=== PATIENT | male | born 1960 | race Hispanic/Latino ===

== ENCOUNTER 2018-06-28 13:30 | Outpatient (CLI) | payer BC ==
--- NOTE | 2018-06-28 14:47 | RAD ---
CHEST 2 VIEWS: Date: 06/28/18 HISTORY: Cough for several weeks. FINDINGS: Heart size is normal. The lungs are clear. Mild biapical pleural thickening. IMPRESSION: No acute intrathoracic disease. No evidence for pneumonia. POS: [facility]
== END 2018-06-28 13:31 | disposition home or self-care (01) ==
LOC: BICRAD 13:30
PROVIDERS: ATTEND Family Medicine
DX: R05 Cough (principal)
CPT/HCPCS: 71046

== ENCOUNTER 2018-07-31 12:29 | Outpatient (CLI) | payer BC ==
[~2018-07-31 12:29] MED LIST: Iopamidol 370 76% 100 ML VIAL ONE
[2018-07-31 14:53] LABS: Estimated GFR-MDRD - POC Greater than 90
--- NOTE | 2018-07-31 15:55 | CT ---
CT ABDOMEN AND PELVIS PERFORMED WITH INTRAVENOUS CONTRAST ENHANCEMENT: 07/31/18 HISTORY: Abnormal liver enzymes. Diverticulitis. Dysuria. Patient states about two months ago had severe pain and bloating, diarrhea for two weeks. Two weeks ago patient had colonoscopy and since then has been u rinating with some unknown residue. The lung bases are clear. The liver and spleen show no focal abnormalities and are within normal limits of size. Pancreas regio n is unremarkable. Small focus of increased attenuation within the fundus region of the gallbladder d oes not have the typical appearance of a stone. It could represent a polyp. It measures approximately 7 to 8 mm. Could ne better assessed with ultrasound. The right and left adrenal glands and right and left kidneys are normal in size. No significant peria ortic or mesenteric adenopathy. There is approximately 8 cm segment of the sigmoid colon which shows diffuse bowel wall thickening an d what appears to be diverticular disease. There is findings that are compatible with a fistulous con nection to the bladder. Projecting off the inferior margin of the sigmoid colon, a somewhat lenticula r shaped soft tissue mass impressing on the dome of the bladder. It measures approximately 3.7 cm in size. It appears to be in the region of what was probably a perforated diverticulum and there is some air present within the bladder suggesting that this is a fistulous connection. Most likely related t o diverticular disease. Less likely related to a neoplastic process. There is no significant pelvic l ymphadenopathy. Prostate is mildly prominent. Review of osseous structures do not show any lytic or blastic bony change. IMPRESSION: 1. 8 cm segment of wall thickening in the sigmoid colon. Projecting just inferior to this is a s oft tissue mass which causes a lenticular shaped impression on the dome of the bladder and there is a ir within the bladder. Most likely etiology of this is a fistulous connection related to diverticular disease. 2. Incidental note is made of a 7 mm nodular area in the fundus region of the gallbladder, possi usha a polyp. Ultrasound would be recommended for assessment. 3. Findings were telephoned to Dr. Villalpando's office. POS: [facility]
== END 2018-07-31 12:30 | disposition home or self-care (01) ==
LOC: SCSCT 12:29
PROVIDERS: ATTEND Physician Assistant Medical
DX: K57.92 Diverticulitis of intestine, part unspecified, without perforation or abscess without bleeding (principal); R74.0 Nonspecific elevation of levels of transaminase and lactic acid dehydrogenase [LDH]; R30.0 Dysuria; R10.32 Left lower quadrant pain; K57.90 Diverticulosis of intestine, part unspecified, without perforation or abscess without bleeding
CPT/HCPCS: 74177; 82565; Q9967

== ENCOUNTER 2018-08-10 11:15 | Inpatient (IN) | payer BC ==
[2018-08-10 11:36] VITALS: BMI 25.1
[2018-08-14] MEDS ORDERED: Ketorolac Tromethamine 30 MG/ML VIAL ONE (06:29)
[2018-08-14] MEDS ORDERED: Sodium Chloride 0.9% 100 ML ONE (06:29)
[2018-08-14] MEDS ORDERED: cefOXitin 2 GM VIAL ONE (06:29)
[2018-08-14] MEDS ORDERED: Fentanyl 100 MCG/2 ML VIAL ONE ×2 (06:33→07:02)
[2018-08-14] MEDS ORDERED: Lidocaine 1% w/Epinephrine 1:100K 20 ML VIAL ONE (06:47)
[2018-08-14] MEDS ORDERED: Bupivacaine/Epinephrine 0.25% 30 ML VIAL ONE (06:47)
[2018-08-14] MEDS ORDERED: Midazolam HCl 2 mg/2 ml Vial ONE (07:02)
[2018-08-14] MEDS ORDERED: ceFOXitin 1 GM VIAL ONE (09:52)
[2018-08-14] MEDS ORDERED: Morphine 4 MG/ML VIAL SLOW IVP PRN (11:31)
[2018-08-14] MEDS ORDERED: Morphine 2 MG/ML SYRINGE SLOW IVP PRN (11:31)
[2018-08-14] MEDS ORDERED: Promethazine HCl 25 MG/ML VIAL IM PRN (11:31)
[2018-08-14] MEDS ORDERED: hydrALAZINE 20 MG/ML VIAL SLOW IVP PRN (11:31)
[2018-08-14] MEDS: Ondansetron PF 4 MG/2 ML Vial IVP PRN (13:17)
[2018-08-14] MEDS: Acetaminophen 1,000 MG in Premix Bag 1 BAG IVPB SCH ×3 (13:17→23:44)
[2018-08-14] MEDS: Ketorolac Tromethamine 30 MG/ML VIAL IVP SCH ×3 (13:17→23:44)
[2018-08-14] MEDS ORDERED: Lidocaine 1% PF 5 ML VIAL ONE (15:14)
[2018-08-14] MEDS ORDERED: PHENYLEPHRINE-NS 100 MCG/ML 10 ML SYRINGE ONE (15:14)
[2018-08-14] MEDS ORDERED: Ondansetron PF 4 MG/2 ML Vial ONE (15:14)
[2018-08-14] MEDS ORDERED: Dexamethasone 20 MG/5 ML VIAL ONE (15:14)
[2018-08-14] MEDS ORDERED: ePHEDrine 50 MG/ML VIAL ONE (15:14)
[2018-08-14] MEDS ORDERED: Rocuronium Bromide 10 MG/ML (10ML VIAL) ONE (15:14)
[2018-08-14] MEDS ORDERED: Succinylcholine Chloride 20 MG/ML 10 ml SYRINGE FS ONE (15:14)
[2018-08-14] MEDS ORDERED: Glycopyrrolate 0.2 MG/ML 5 ML SYRINGE ONE (15:14)
[2018-08-14] MEDS ORDERED: Esmolol 100 MG/10 ML VIAL ONE (15:14)
[2018-08-14] MEDS ORDERED: PROPOFOL 200 MG/20 ML VIAL ONE (15:14)
[2018-08-14] MEDS ORDERED: Bupivacaine HCl 0.5%/Epinephrine 1:200,000/PF 30 ml Vial ONE (16:01)
[2018-08-14] MEDS: D5 1/2 NS w/20 mEq KCL 1,000 ML IV SCH ×2 (18:15→18:17)
[2018-08-14] MEDS: Amlodipine 5 MG TAB PO SCH (18:15)
[2018-08-14] MEDS: Enoxaparin Sodium 40 MG/0.4 ML SYRINGE SC SCH (21:02)
[2018-08-14] MEDS: Famotidine/PF 20 mg/2ml Vial SLOW IVP SCH (21:02)
[2018-08-14] MEDS: Alfuzosin 10 MG TABDR...ER PO SCH (21:02)
[2018-08-14] MEDS: Famotidine 20 MG TAB PO SCH (21:02)
[2018-08-14] MEDS: Atorvastatin Calcium 20 MG TAB PO SCH (21:02)
--- NOTE | 2018-08-14 22:54 | OP ---
DATE OF PROCEDURE: 08/14/2018 PREOPERATIVE DIAGNOSIS: Colovesical fistula. POSTOPERATIVE DIAGNOSIS: Colovesical fistula. OPERATION PERFORMED: Laparoscopic sigmoid colectomy. ANESTHESIA: General endotracheal. INDICATIONS: The patient is a 58-year-old male. He had a colonoscopy performed recently, which showed active diverticulitis. He subsequently developed symptoms of a colovesical fistula with pneumaturia and fecal matter within his urine. Laparoscopic sigmoid colectomy was recommended. He has been maintained on antibiotics in the interim. He has undergone outpatient mechanical and antibiotic bowel prep. DESCRIPTION OF OPERATION: Informed consent was obtained. The patient was taken to the operating room, where general endotracheal anesthesia was obtained with the patient in supine position. Before coming to the operating room, he had a tap block placed by Anesthesia. A Ibrahim catheter was placed and his abdomen was prepped with ChloraPrep and draped in sterile fashion. Local anesthetic was infiltrated using 0.25% Marcaine with epinephrine. A 5 mm supraumbilical incision was created through which a Veress needle was passed into the peritoneal cavity. Pneumoperitoneum was established using carbon dioxide to pressure of 15 mmHg. A 5 mm trocar port site was passed through the same incision. Laparoscopic camera was passed through this port. Under direct vision, a 12 mm right lower quadrant port was placed. The area of inflammation was easily visualized in the left lower quadrant. There was omentum adherent to inflamed colon, which was adherent to the anterior abdominal wall and the pelvis. There was noted that the colon distal to this was soft and pliable and entirely normal as was the colon proximal to this segment. I took down some of the adhesions between the omentum and the anterior abdominal wall to allow room for placement of the extraction port. An 8 cm oblique left lower quadrant incision was created and dissection was carried through skin and subcutaneous tissue. Muscle splitting was used to gain access into the abdominal cavity. The James wound retractor was placed through this incision and the GelPort was affixed to the wound retractor. The omentum was dissected away from the inflammatory process and retracted superiorly. The patient was placed into a fairly steep Trendelenburg position. Attention was turned to the inflamed mass. This extended over the course of about 8 to 9 cm. There was no segment of this that I could digitally mobilized away from the abdominal wall. I first turned my attention to the left colon. The left colon was mobilized along the white line of Toldt using the LigaSure device. The mobilization was carried up and beyond the splenic flexure to gain full splenic flexure mobilization. The omentum was taken off the distal transverse colon as well. I then attempted to dissect inferiorly along the same plane, but immediately met with extreme inflammatory resistance. There was no area that could be dissected bluntly or sharply on the proximal or distal aspect of this. I therefore used electrocautery to begin to mobilize the inflamed and thickened tissue, attempting to maintain some plane between the colon and the abdominal wall. Fortunately, this process was relatively anterior and therefore well away from the ureter. With persistence and continued electrocautery, I was able to fully mobilize the colon away from the abdominal wall. The portion of the abdominal wall that was involved was of course the bladder and there was severe inflammatory tissue noted at this area. I, at this point, instilled 300 mL of saline with methylene blue dye. With the bladder relatively tensely filled, I could visualize no leak through this area. The tissue was indurated, inflamed, and I opted against placing any sutures in the bladder at this time. I mobilized the left colon down into the pelvis by incising the peritoneum. This was carried superiorly to gain full appropriate mobilization. The ureter was identified at this juncture. I dissected the mesentery of the rectosigmoid junction, creating a mesenteric window. The colon was divided at this level with a single fire of the blue load of the [place] stapler. The mesentery was dissected proximally. I then identified a segment of the descending colon that would reach down into the pelvis. This was marked and the colon was externalized through the wound retractor. The remainder of the mesentery was taken down using the LigaSure device and the colon was cleared at the point of planned proximal division. Sterile towels were placed around the wound retractor and segregated instruments were utilized. The colon was incised and the colon diameter was discerned using EEA sizers. I selected the 31 mm EEA stapler and the anvil of this was brought into the field and passed through the enterotomy and out the antimesenteric wall several centimeters proximally. The enterotomy was then resected in continuity with the distal segment of the colon with a final fire of the [place] stapler. The stapler as well as the towels in all potentially contaminated instruments were passed off the field. Gloves were changed. Post of the anvil was cleansed with Betadine and 2-0 Prolene, pursestring suture was placed around the base of the anvil. Laparoscopy was re-initiated. From below, the EEA sizers were gently passed up to the staple line uneventfully and the 31 mm stapler was passed up to the staple line. The spike was advanced anterior to the staple line. This was mated to the anvil. The two segments were approximated and the anastomosis was completed by firing the stapler. The stapler was removed and the donuts were inspected and found to be of excellent quality and intact. The anastomosis was checked for airtight integrity by insufflating the rigid proctoscope. There was no evidence of air leak. The operative site internally was inspected one final time. There was no evidence of any blood loss from any location. It was irrigated and all irrigant was aspirated. The fascial defect at the 12 mm port site was closed with 0 Vicryl suture using a GraNee needle. All ports and instruments were removed under direct vision and pneumoperitoneum was carefully evacuated. The wound retractor was removed as well. The abdominal wall was cleansed with saline and the laparoscopic instrumentation was passed off the field. Gowns and gloves were changed. The closing tray was utilized. The fascia was closed in 2 layers using running suture of #1 PDS. Additional local anesthetic was infiltrated between the two fascial layers using 1% lidocaine with epinephrine. The wound was irrigated with 2 L of saline and all irrigant was aspirated. The remainder of the wound was closed in layers with 3-0 and 4-0 Monocryl and the other laparoscopic sites were closed with 4-0 Monocryl. Dermabond was placed externally. There were no complications. The patient tolerated the procedure well and was taken to recovery room in stable condition. Job ID: [id number]
[2018-08-15] MEDS: Ketorolac Tromethamine 30 MG/ML VIAL IVP SCH ×4 (05:21→23:33)
[2018-08-15] MEDS: Acetaminophen 1,000 MG in Premix Bag 1 BAG IVPB SCH (05:22)
[2018-08-15] MEDS: D5 1/2 NS w/20 mEq KCL 1,000 ML IV SCH ×3 (05:22→18:30)
[2018-08-15 07:15] LABS: #Lymphocytes 1.2 thou/uL (1.20-3.40); #Monocytes 1.1 thou/uL (0.11-0.59); #Neutrophils 7.9 thou/uL (1.40-6.50); %Basophils 0.2 % (0.0-1.0); %Eosinophils 0.3 % (0.0-10.0); %Monocytes 10.8 % (0.0-10.0); %Neutrophils 76.7 % (42.0-75.0); Mean Corpuscular HGB CONC 32.1 g/dL (32.0-36.0); Mean Corpuscular Hemoglobin 29.3 pg (27.0-31.0); Mean Corpuscular Volume 91.3 fL (78.0-98.0); Mean Platelet Volume 6.8 fL (7.4-10.4); Platelet Count 292 thou/uL (130-400); RBC Distribution Width 12.7 % (11.5-14.5); Red Blood Cell (RBC) Count 4.09 mill/uL (4.70-6.10); White Blood Cell (WBC) Count 10.3 thou/uL (4.8-10.8)
[2018-08-15 07:34] LABS: Anion Gap 10 mmol/L (10-20); BUN (Urea Nitrogen) 9 mg/dL (8.4-25.7); Calc. Creatinine Clearance 115 mL/min (70-130); Calcium 8.8 mg/dL (7.8-10.44); Carbon Dioxide 26 mmol/L (22-29); Chloride 105 mmol/L (98-107); Estimated GFR-MDRD Greater than 90; Glucose 120 mg/dL (70-105); Sodium 137 mmol/L (136-145)
[2018-08-15] MEDS ORDERED: HYDROcodone/Acetaminophen 7.5/325 mg Tablet PO PRN (08:04)
--- NOTE | 2018-08-15 08:21 | PRG ---
DATE OF SERVICE: 08/15/2018 SUBJECTIVE: Mr. Ta is postoperative day #1 from laparoscopic sigmoid colectomy and repair of colovesical fistula. He is resting in bed comfortably. He complains of "gas pains." He has not vomited. His Ibrahim catheter is still in place. He is ambulated several times. OBJECTIVE: VITAL SIGNS: He is afebrile. Pulse is 90 and blood pressure 114/63. LUNGS: Clear to auscultation. ABDOMEN: Soft. Incisions are healing nicely. Bowel sounds are present and normoactive. LABORATORY DATA: Chemistry panel reveals normal electrolytes. Glucose is 120. His CBC shows a hemoglobin of 12 with a white blood cell count of 10. ASSESSMENT: The patient is doing very well postoperative day #1 from laparoscopic sigmoid colectomy. He is on his clear liquid diet today and he is instructed to take clears as tolerated. I will advance him to full liquids later this evening. He is also instructed to ambulate several times. Assuming he continues current progress, I would anticipate discharge tomorrow. PLAN: I will plan to discharge him home with Ibrahim catheter in place and I will remove that in my office after one week. This is to allow completion of healing of the bladder fistula. Finally, it is noted that he is on metformin, but his hemoglobin A1c preoperatively was normal and his glucose levels have never been significantly elevated since his surgery. At some point in the past in September of 2016, he had an A1c of 11.1, but it was 5.4 in preparation for the surgery. Perhaps it would be time to wean his metformin. Job ID: [id number]
[2018-08-15] MEDS: Amlodipine 5 MG TAB PO SCH (09:41)
[2018-08-15] MEDS: Famotidine 20 MG TAB PO SCH ×2 (09:44→21:17)
[2018-08-15] MEDS: metFORMIN 500 MG TAB PO SCH ×2 (09:45→21:17)
[2018-08-15] MEDS: Famotidine/PF 20 mg/2ml Vial SLOW IVP SCH ×2 (09:45→21:18)
[2018-08-15] MEDS: Ondansetron PF 4 MG/2 ML Vial IVP PRN (16:14)
[2018-08-15] MEDS: Acetaminophen 325 MG TAB PO PRN ×2 (18:15→22:22)
[2018-08-15] MEDS: Alfuzosin 10 MG TABDR...ER PO SCH (21:17)
[2018-08-15] MEDS: Enoxaparin Sodium 40 MG/0.4 ML SYRINGE SC SCH (21:18)
[2018-08-15] MEDS: Atorvastatin Calcium 20 MG TAB PO SCH (21:18)
[2018-08-16] MEDS: D5 1/2 NS w/20 mEq KCL 1,000 ML IV SCH ×2 (03:40→11:42)
[2018-08-16] MEDS: Acetaminophen 325 MG TAB PO PRN (03:40)
[2018-08-16] MEDS: Ketorolac Tromethamine 30 MG/ML VIAL IVP SCH ×4 (05:36→23:50)
[2018-08-16] MEDS: Amlodipine 5 MG TAB PO SCH (08:55)
[2018-08-16] MEDS: Ondansetron PF 4 MG/2 ML Vial IVP PRN (08:56)
[2018-08-16] MEDS: Famotidine/PF 20 mg/2ml Vial SLOW IVP SCH ×2 (08:56→19:43)
[2018-08-16] MEDS: Famotidine 20 MG TAB PO SCH ×2 (08:56→19:43)
[2018-08-16] MEDS: metFORMIN 500 MG TAB PO SCH ×2 (08:56→19:44)
--- NOTE | 2018-08-16 12:56 | RAD ---
KUB: 08/16/2018 COMPARISON: None HISTORY: Status post colectomy. FINDINGS: There is diffuse gaseous distention of large and small bowel throughout the abdomen/pelvis. Supine imaging is provided, limiting assessment for free intraperitoneal air. IMPRESSION: Prominent diffuse gaseous distention of the large and small bowel, most consistent with i leus. Developing bowel obstruction cannot be excluded. Follow-up imaging following treatment advised to document resolution.
--- NOTE | 2018-08-16 16:34 | PRG ---
DATE OF SERVICE: 08/16/2018 SUBJECTIVE: Mr. Ta is postoperative day #2 from laparoscopic sigmoid colectomy and repair of colovesical fistula. This morning, upon arrival, he told me he felt much better today than he did yesterday. He told me that he has had flatus and had a bowel movement yesterday, and he tolerated his diet without any vomiting, and he currently had no nausea, although he did have some yesterday. At that time, I felt that he was stable for discharge as it appeared that his ileus had appropriately resolved and he was ready for discharge. Discharge orders were written. Unfortunately, as the morning progressed, he again felt bloated as he had yesterday and was given some nausea medication. Through the course of the day, he was observed and he really did not have much further flatus. He again felt bloated and an abdominal x-ray was ordered. This revealed diffusely distended gas-filled loops of small bowel and colon. For this reason, I decided that he would likely have problems if he was discharged home and I elected to watch him for another day and switched him to a clear liquid diet. OBJECTIVE: VITAL SIGNS: On examination, he remains afebrile. His pulse which was in the 90s yesterday is in the low 100s today, but still regular. Blood pressure is 150/100. LUNGS: Clear to auscultation. CARDIAC: Regular rate and rhythm. ABDOMEN: Soft and nontender. Bowel sounds were present and appeared to be normoactive this morning. Incisions are healing nicely. LABORATORY DATA: None. ASSESSMENT: The patient is stable postoperative day #2 from his laparoscopic sigmoid colectomy. I do not believe he is ready for discharge at this point. I will keep him on a clear liquid diet and resume his IV fluids and watch him overnight. I will recheck labs tomorrow. I anticipate he will be ready for discharge in the near future. Job ID: [id number]
[2018-08-16] MEDS: Lactated Ringer's 1,000 ML IV SCH (17:34)
[2018-08-16] MEDS: Enoxaparin Sodium 40 MG/0.4 ML SYRINGE SC SCH (19:42)
[2018-08-16] MEDS: Atorvastatin Calcium 20 MG TAB PO SCH (19:43)
[2018-08-16] MEDS: Alfuzosin 10 MG TABDR...ER PO SCH (19:43)
[2018-08-17] MEDS: Ketorolac Tromethamine 30 MG/ML VIAL IVP SCH ×2 (05:01→11:41)
[2018-08-17] MEDS: Lactated Ringer's 1,000 ML IV SCH ×3 (05:02→22:55)
[2018-08-17 05:48] LABS: #Eosinphils 0.1 thou/uL (0.0-0.7); #Monocytes 1.1 thou/uL (0.11-0.59); #Neutrophils 8.7 thou/uL (1.40-6.50); %Basophils 0.4 % (0.0-1.0); %Eosinophils 1.2 % (0.0-10.0); %Lymphocytes 9.2 % (21.0-51.0); %Monocytes 9.7 % (0.0-10.0); %Neutrophils 79.5 % (42.0-75.0); Hemoglobin 12.6 g/dL (14.0-18.0); Mean Corpuscular HGB CONC 33.6 g/dL (32.0-36.0); Mean Corpuscular Volume 89.2 fL (78.0-98.0); Platelet Count 296 thou/uL (130-400); RBC Distribution Width 12.4 % (11.5-14.5); Red Blood Cell (RBC) Count 4.21 mill/uL (4.70-6.10)
[2018-08-17 06:29] LABS: Anion Gap 11 mmol/L (10-20); BUN (Urea Nitrogen) 13 mg/dL (8.4-25.7); Calc. Creatinine Clearance 141 mL/min (70-130); Calcium 9.3 mg/dL (7.8-10.44); Carbon Dioxide 25 mmol/L (22-29); Chloride 103 mmol/L (98-107); Estimated GFR-MDRD Greater than 90; Glucose 106 mg/dL (70-105); Sodium 135 mmol/L (136-145)
[2018-08-17] MEDS: metFORMIN 500 MG TAB PO SCH ×2 (09:03→21:52)
[2018-08-17] MEDS: Famotidine/PF 20 mg/2ml Vial SLOW IVP SCH ×2 (09:04→21:52)
[2018-08-17] MEDS: Famotidine 20 MG TAB PO SCH ×2 (09:04→21:35)
[2018-08-17] MEDS: Amlodipine 5 MG TAB PO SCH (09:04)
[2018-08-17] MEDS ORDERED: Fleet Enema 133 ML BOT FS SCH (10:15)
--- NOTE | 2018-08-17 17:23 | CT ---
Contrast-enhanced images abdomen pelvis. HISTORY: Status post sigmoid colectomy. Contrast-enhanced images of the abdomen and pelvis obtained. The lung bases are unremarkable. Extensive gas seen in the subcutaneous fat compatible with patient's recent surgery. Small amount of intraperitoneal air seen which likely is postsurgical. The liver and spleen is unremarkable. Some hyperintense areas seen in the gallbladder possibly presen ting gallbladder sludge and possible gallbladder polyp.. There is a sliding small hiatal hernia seen. Moderately dilated loops of small bowel seen compatible with postoperative ileus. Radiopaque contrast fills the distal colon. Endorectal enema tip is in place. No evidence of leakage seen outside of the surgical anastomosis in the sigmoid colon. Contrast is seen filling the distal transverse colon as well as the descending colon residual sigmoid colon and rectum. Indwelling Ibrahim catheter is in place. IMPRESSION: Postoperative changes. No evidence of extravasation of contrast seen outside of the dista l colonic lumen to suggest leak.
[2018-08-17] MEDS: Acetaminophen 325 MG TAB PO PRN ×2 (18:23→22:55)
[2018-08-17] MEDS: Enoxaparin Sodium 40 MG/0.4 ML SYRINGE SC SCH (21:34)
[2018-08-17] MEDS: Atorvastatin Calcium 20 MG TAB PO SCH (21:35)
[2018-08-17] MEDS: Alfuzosin 10 MG TABDR...ER PO SCH (21:35)
[2018-08-18 05:21] LABS: #Basophils 0.1 thou/uL (0.0-0.2); #Eosinphils 0.4 thou/uL (0.0-0.7); #Lymphocytes 1.2 thou/uL (1.20-3.40); #Monocytes 0.7 thou/uL (0.11-0.59); #Neutrophils 5.9 thou/uL (1.40-6.50); %Basophils 0.7 % (0.0-1.0); %Eosinophils 4.8 % (0.0-10.0); %Lymphocytes 14.1 % (21.0-51.0); %Monocytes 8.6 % (0.0-10.0); %Neutrophils 71.7 % (42.0-75.0); Hemoglobin 11.5 g/dL (14.0-18.0); Mean Corpuscular Hemoglobin 30.5 pg (27.0-31.0); Mean Corpuscular Volume 89.7 fL (78.0-98.0); Platelet Count 281 thou/uL (130-400); RBC Distribution Width 12.3 % (11.5-14.5); Red Blood Cell (RBC) Count 3.77 mill/uL (4.70-6.10); White Blood Cell (WBC) Count 8.2 thou/uL (4.8-10.8)
[2018-08-18 05:40] LABS: Anion Gap 13 mmol/L (10-20); BUN (Urea Nitrogen) 9 mg/dL (8.4-25.7); Calc. Creatinine Clearance 141 mL/min (70-130); Calcium 8.9 mg/dL (7.8-10.44); Carbon Dioxide 25 mmol/L (22-29); Chloride 103 mmol/L (98-107); Estimated GFR-MDRD Greater than 90; Glucose 80 mg/dL (70-105); Potassium 3.6 mmol/L (3.5-5.1); Sodium 137 mmol/L (136-145)
[2018-08-18] MEDS: HYDROcodone/Acetaminophen 7.5/325 mg Tablet PO PRN ×2 (06:31→16:16)
[2018-08-18] MEDS: Lactated Ringer's 1,000 ML IV SCH (08:06)
[2018-08-18] MEDS: Famotidine/PF 20 mg/2ml Vial SLOW IVP SCH (08:11)
[2018-08-18] MEDS: metFORMIN 500 MG TAB PO SCH (08:12)
[2018-08-18] MEDS: Amlodipine 5 MG TAB PO SCH (08:14)
[2018-08-18] MEDS: Famotidine 20 MG TAB PO SCH (08:14)
--- NOTE | 2018-08-18 16:46 | PDOC.GSPN ---
Surgery Progress Note: Subj - Subjective Narrative: Patient is feeling much better today. He is passing gas and having bowel movements and tolerating his clear liquid diet. His heart rate has come back down into the 90s to 100s which she says is where he usually runs at home. His CT scan yesterday was unremarkable and didn't show any evidence of leak or abscess. Heart rate is in the 90s to 100s. Other vital signs are normal. Abdomen is soft and nondistended with normal bowel sounds and healing laparoscopic incisions. Urine is clear. Assessment/plan: Doing well status post laparoscopic sigmoid colectomy for colovesical fistula. Bowel function appears to be improving and tachycardia is improving as well. Continue Ibrahim catheter to decompress healing bladder. Advance diet to full. If the patient tolerates full liquid diet he may be able to be discharged home later today. Surgery Progress Note: Obj - Vital signs Vital signs: Vital Signs - Most Recent Temp Pulse Resp BP Pulse Ox 97.8 F 93 18 138/80 97 08/18/18 10:48 08/18/18 10:48 08/18/18 10:48 08/18/18 10:48 08/18/18 10:48 Surgery Progress Note: Results - Labs Result Diagrams: 08/18/18 04:41 08/18/18 04:41 Lab results: Laboratory Results - last 24 hr 08/18/18 08/18/18 08/18/18 04:41 04:41 05:53 WBC 8.2 RBC 3.77 L Hgb 11.5 L Hct 33.8 L MCV 89.7 MCH 30.5 MCHC 34.0 RDW 12.3 Plt Count 281 MPV 7.0 L Neutrophils % 71.7 Lymphocytes % 14.1 L Monocytes % 8.6 Eosinophils % 4.8 Basophils % 0.7 Neutrophils # 5.9 Lymphocytes # 1.2 Monocytes # 0.7 H Eosinophils # 0.4 Basophils # 0.1 Sodium 137 Potassium 3.6 Chloride 103 Carbon Dioxide 25 Anion Gap 13 BUN 9 Creatinine 0.64 L Estimated GFR (MDRD) Greater than 90 Glucose 80 POC Glucose 88 Calcium 8.9 08/18/18 08/18/18 10:49 16:09 WBC RBC Hgb Hct MCV MCH MCHC RDW Plt Count MPV Neutrophils % Lymphocytes % Monocytes % Eosinophils % Basophils % Neutrophils # Lymphocytes # Monocytes # Eosinophils # Basophils # Sodium Potassium Chloride Carbon Dioxide Anion Gap BUN Creatinine Estimated GFR (MDRD) Glucose POC Glucose 80 93 Calcium
[2018-08-18 16:56] VITALS: BP 145/83; TEMP 98.1
== END 2018-08-18 17:28 | disposition home or self-care (01) | DRG 330 ==
LOC: SURG A 08-14 05:53 → SURG B 08-14 11:13 → EDSTATUS 08-14 11:15
PROVIDERS: ADMIT Specialist; ATTEND Specialist
PROC: 0DTN4ZZ Resection of Sigmoid Colon, Percutaneous Endoscopic Approach (ICD-10-PCS; principal; 2018-08-14)
DX: K63.2 Fistula of intestine (principal); N32.1 Vesicointestinal fistula
CPT/HCPCS: 36415; 36416; 74018; 74177; 80048; 85025; 88307; J0131; J0690; J0694; J1650; J1885; J2001; J2250; J2270; J2405; J3010; J3490; Q9968; S0028

== ENCOUNTER 2018-11-26 07:47 | Outpatient (CLI) | payer BC ==
--- NOTE | 2018-11-26 09:56 | CT ---
CT Abdomen Pelvis W WO con History: Vesicointestinal fistula Comparison: CT August 17, 2018 Findings: On the noncontrast portion of the examination the lung bases are clear. No pericardial effu bong. No nephrolithiasis. Indwelling Ibrahim catheter. Old fistulous tract to the urinary bladder appears to healed with scar. There is no reflux of contras t into the fistula nor adjacent sigmoid colon. There is be a polyp of the anterior gallbladder wall mid body measuring up to 7 mm. Liver is unremark able. Pancreas is unremarkable. Incidental note is made of a splenule. No hydronephrosis. Retained contrast within a sigmoid diverticula. Prior sigmoid surgery with suture. No hydronephrosis. No acute osseous abnormality. Bone [place] right pubic body Impression: Healed and scarred vesicocolonic fistula without contrast extending retrograde into the f istula nor the sigmoid colon.
[2018-11-26] MEDS ORDERED: Iopamidol 370 76% 100 ML VIAL ONE (16:23)
== END 2018-11-26 07:48 | disposition home or self-care (01) ==
LOC: CT 07:47
PROVIDERS: ATTEND Urology
DX: N32.1 Vesicointestinal fistula (principal); R35.0 Frequency of micturition; Z87.440 Personal history of urinary (tract) infections
CPT/HCPCS: 74178; Q9967

== ENCOUNTER 2019-02-07 13:00 | Outpatient (CLI) | payer BC ==
--- NOTE | 2019-02-07 15:15 | ULT ---
RIGHT LOWER EXTREMITY VENOUS DUPLEX EXAM: Date: 02/07/19 INDICATION: Right lower extremity pain and edema. FINDINGS: Veins of right lower extremity evaluated with ultrasound and Doppler. Color Doppler, spectral analysi s, and compression performed. Deep veins show normal blood flow and compression. No evidence of deep venous thrombosis. IMPRESSION: No evidence of right lower extremity deep venous thrombosis. POS: [facility]
== END 2019-02-07 13:01 | disposition home or self-care (01) ==
LOC: SCSULT 13:00
PROVIDERS: ATTEND Urology
DX: M79.89 Other specified soft tissue disorders (principal); R60.9 Edema, unspecified

== ENCOUNTER 2019-08-08 16:24 | Inpatient (IN) | payer BC ==
[2019-08-08 17:06] LABS: #Lymphocytes 0.4 thou/uL (1.20-3.40); #Monocytes 0.1 thou/uL (0.11-0.59); #Neutrophils 10.2 thou/uL (1.40-6.50); %Basophils 0.1 % (0.0-1.0); %Eosinophils 0.3 % (0.0-10.0); %Lymphocytes 3.3 % (21.0-51.0); %Monocytes 0.9 % (0.0-10.0); %Neutrophils 95.4 % (42.0-75.0); Hemoglobin 14.4 g/dL (14.0-18.0); Mean Corpuscular Hemoglobin 30.9 pg (27.0-31.0); Mean Corpuscular Volume 90.8 fL (78.0-98.0); Mean Platelet Volume 7.7 fL (7.4-10.4); Platelet Count 233 thou/uL (130-400); RBC Distribution Width 14.9 % (11.5-14.5); Red Blood Cell (RBC) Count 4.65 mill/uL (4.70-6.10); White Blood Cell (WBC) Count 10.7 thou/uL (4.8-10.8)
[2019-08-08 17:15] LABS: Bilirubin Negative (Negative); Blood, Urine Negative (Negative); Clarity Clear (Clear); Glucose, Urine (Dipstick) Greater than 1000 mg/dL (Negative); Leukocyte Negative Leu/uL (Negative); Nitrite Negative (Negative); Protein, Urine (Dipstick) Negative (Neg-Trace); Urobilinogen Normal mg/dL (Less than 2)
[2019-08-08 17:30] LABS: ALT (SGPT) 46 U/L (8-55); AST (SGOT) 13 U/L (5-34); Albumin 4.1 g/dL (3.5-5.0); Anion Gap 19 mmol/L (10-20); BUN (Urea Nitrogen) 19 mg/dL (8.4-25.7); Bilirubin, Total 0.9 mg/dL (0.2-1.2); Calc. Creatinine Clearance 0 mL/min (70-130); Calcium 9.4 mg/dL (7.8-10.44); Carbon Dioxide 18 mmol/L (22-29); Chloride 99 mmol/L (98-107); Estimated GFR-MDRD 88; Globulin 2.2 g/dL (2.4-3.5); Potassium 4.6 mmol/L (3.5-5.1); Protein, Total 6.3 g/dL (6.0-8.3); Sodium 131 mmol/L (136-145)
[2019-08-08 17:31] LABS: Lipase 93 U/L (8-78)
[2019-08-08 17:38] LABS: Glucose 592 mg/dL (70-105)
[2019-08-08 17:41] LABS: Alkaline Phosphatase 53 U/L (40-110)
[2019-08-08] MEDS ORDERED: Insulin Regular 300 UNITS/3 ML VIAL ONE (18:55)
[2019-08-08] MEDS ORDERED: Insulin Regular 100 units/100 ml in NS IVPB SCH (19:30)
[2019-08-08 19:43] LABS: Base Excess-Venous -3.6 mmol/L (-2.0 to 3.0); Bicarbonate (HCO3v) 20.1 mmol/L (22.0-28.0); CO2 Tension (PvCO2) 31.9 mmHg (40.0-50.0); Calcium, Ionized 1.19 mmol/L (See Comments:); Chloride 106 mmol/L (98-107); Hemoglobin - Calc 14.6 g/dL (14.0-18.0); Potassium 3.8 mmol/L (3.5-5.1); Sodium 135 mmol/L (138-145); T. Carbon Dioxide 21.1 mmol/L (22.0-28.0); vO2 Saturation-calc 95.7 % (60.0-85.0)
[2019-08-08] MEDS ORDERED: NS 0.9% w/ 20 MEQ KCL 1,000 ML IV PRN (20:13)
[2019-08-08] MEDS ORDERED: Sodium Chloride 0.9% 1,000 ML IV PRN ×4 (20:13)
[2019-08-08] MEDS ORDERED: HYDROcodone/Acetaminophen 5/325 mg Tablet PO PRN ×2 (20:13)
[2019-08-08] MEDS ORDERED: Acetaminophen 650 MG Suppository PR PRN (20:13)
[2019-08-08] MEDS ORDERED: Dextrose 5 %-0.45 % NaCl 1,000 ML IV PRN (20:13)
[2019-08-08] MEDS ORDERED: CCU Electrolyte Replacement 1 EACH IVPB SCH (20:13)
[2019-08-08] MEDS ORDERED: Acetaminophen 325 MG TAB PO PRN (20:13)
[2019-08-08] MEDS ORDERED: HUMULIN R 100 UNITS in Sodium Chloride 0.9% 100 ML IVPB SCH (20:15)
[2019-08-08] MEDS ORDERED: CCU ELECTROLYTE REPLACEMENT PROTOCOL FS PRN (20:23)
[2019-08-08] MEDS ORDERED: Potassium Phosphate 15 MMOL in Sodium Chloride 0.9% 250 ML 250 ML IV PRN (20:23)
[2019-08-08] MEDS ORDERED: Potassium Chloride 20 MEQ TAB PO PRN (20:23)
[2019-08-08] MEDS ORDERED: Potassium Chloride 40 MEQ in Premix Bag 1 BAG IVPB PRN (20:23)
[2019-08-08] MEDS ORDERED: Potassium Phosphate 9 MMOL in Sodium Chloride 0.9% 100 ML IVPB PRN (20:23)
[2019-08-08] MEDS ORDERED: Magnesium Oxide 400 MG TAB PO PRN ×2 (20:23)
[2019-08-08] MEDS ORDERED: PHOS-NAK 1 PKT PACK PO PRN ×2 (20:23)
[2019-08-08] MEDS ORDERED: Magnesium 2 GM/50 ML 2 GM in Premix Bag 1 BAG IVPB PRN (20:23)
[2019-08-08] MEDS ORDERED: Potassium Chloride 40 MEQ in Sodium Chloride 0.9% 250 ML 250 ML IVPB PRN (20:23)
[2019-08-08] MEDS ORDERED: Potassium Phosphate 12 MMOL in Sodium Chloride 0.9% 250 ML 250 ML IV PRN (20:23)
[2019-08-08 20:32] VITALS: BMI 25.6
[2019-08-08] MEDS: NS 0.9% w/ 20 MEQ KCL 1,000 ML IV PRN ×2 (20:35→22:28)
[2019-08-08 21:04] LABS: Anion Gap 16 mmol/L (10-20); BUN (Urea Nitrogen) 16 mg/dL (8.4-25.7); Calc. Creatinine Clearance 128 mL/min (70-130); Calcium 9.1 mg/dL (7.8-10.44); Carbon Dioxide 20 mmol/L (22-29); Chloride 103 mmol/L (98-107); Estimated GFR-MDRD Greater than 90; Glucose 303 mg/dL (70-105); Sodium 135 mmol/L (136-145)
--- NOTE | 2019-08-08 21:33 | PDOC.HHP ---
Hospitalist HPI - History of Present Illness blurry vision, poly uria poly dipsea History of Present Illness: Case of an 59y/o male with pmhx of hypercholesterolemia htn dm and polymyositis that comes to hospital complaining of polydipsea polyurea generalize weaknes and blurry vision. patient refers was on his usual state of health until 3 weeks when he started to notice symptoms and have kept progressing until today when he decided to come to hospital for evaluation. Here at the ED patient was found on DKA for which hospitalist was consulted for further evaluation and management. patient states 1 month ago he was diagnose with polymyositis for which he was started on steroids, which has caused him an increase in his b/p and sugar. he states he has been trying to manage hyperglycemia with pcp but has been unable and since he started with blurry vision pcp recommended to go to hospital for evaluation. patient denies fever chills or malaise Hospitalist ROS - Review of Systems All other systems reviewed; all pertinent +/- noted in HPI/Subj - Medication Medications: Active Medications Generic Name Dose Route Start Last Admin Trade Name Freq PRN Reason Stop Dose Admin Insulin Human Regular 100 101 mls @ 8.08 mls/hr 08/08/19 19:30 08/08/19 20:36 units/ Sodium Chloride IVPB 101 mls INF AGNIESZKA Administration 8 UNITS/HR Potassium Chloride/Sodium Chloride 1,000 mls @ 500 mls/hr 08/08/19 20:13 20:35 Ns 0.9% W/ 20 Meq Kcl IV 1,000 mls .Q2H PRN Administration Step 2 of DKA Protocol Protocol Hospitalist History - Past Medical History Cardiac: reports: HTN, Hyperlipidemia Rheumatologic: reports: Other (myositis) Endocrine: reports: Diabetes - Past Surgical History Other Surgical History: colectomy - Family History Family History: reports: hypertension - Social History Smoking Status: Never smoker Alcohol: reports: None, Occassional Drugs: reports: none Living Situation: With Family - Exam General Appearance: awake alert Eye: PERRL, anicteric sclera ENT: normocephalic atraumatic, no oropharyngeal lesions Neck: supple, symmetric, no JVD, no thyromegaly Heart: RRR, no gallops, no rubs Respiratory: CTAB, no wheezes, no rales, no ronchi Gastrointestinal: soft, non-tender, non-distended Extremities: no cyanosis, no clubbing, no edema Skin: normal turgor, no lesions, no rashes Neurological: cranial nerve grossly intact, normal sensation to touch, no weakness Musculoskeletal: normal tone, normal strength, no muscle wasting Psychiatric: normal affect, normal behavior, A&O x 3 Hospitalist Results - Labs Result Diagrams: 08/08/19 16:56 08/08/19 20:37 Lab results: WBC 10.7 thou/uL (4.8-10.8) 08/08/19 16:56 Hgb 14.4 g/dL (14.0-18.0) 08/08/19 16:56 Hct 42.3 % (42.0-52.0) 08/08/19 16:56 MCV 90.8 fL (78.0-98.0) 08/08/19 16:56 Plt Count 233 thou/uL (130-400) 08/08/19 16:56 Neutrophils % 95.4 % (42.0-75.0) H 08/08/19 16:56 VBG pCO2 31.9 mmHg (40.0-50.0) L 08/08/19 19:36 VBG pO2 77.9 mmHg (35.0-45.0) H 08/08/19 19:36 Sodium 135 mmol/L (136-145) L 08/08/19 20:37 Potassium 4.0 mmol/L (3.5-5.1) 08/08/19 20:37 Chloride 103 mmol/L (98-107) 08/08/19 20:37 Carbon Dioxide 20 mmol/L (22-29) L 08/08/19 20:37 BUN 16 mg/dL (8.4-25.7) 08/08/19 20:37 Creatinine 0.71 mg/dL (0.7-1.3) 08/08/19 20:37 Glucose 303 mg/dL (70-105) H 08/08/19 20:37 Calcium 9.1 mg/dL (7.8-10.44) 08/08/19 20:37 Total Bilirubin 0.9 mg/dL (0.2-1.2) 08/08/19 16:56 AST 13 U/L (5-34) 08/08/19 16:56 ALT 46 U/L (8-55) 08/08/19 16:56 Alkaline Phosphatase 53 U/L (40-110) 08/08/19 16:56 Serum Total Protein 6.3 g/dL (6.0-8.3) 08/08/19 16:56 Albumin 4.1 g/dL (3.5-5.0) 08/08/19 16:56 Lipase 93 U/L (8-78) H 08/08/19 16:56 Urine Ketones 20 mg/dL (Negative) A 08/08/19 16:30 Urine Blood Negative (Negative) 08/08/19 16:30 Urine Nitrite Negative (Negative) 08/08/19 16:30 Ur Leukocyte Esterase Negative [facility]/uL (Negative) 08/08/19 16:30 Hospitalist H&P A/P - Problem (1) DKA (diabetic ketoacidoses) Code(s): E11.10 - TYPE 2 DIABETES MELLITUS WITH KETOACIDOSIS WITHOUT COMA Status: Acute (2) Hypertension Code(s): I10 - ESSENTIAL (PRIMARY) HYPERTENSION Status: Acute (3) Hypercholesteremia Code(s): E78.00 - PURE HYPERCHOLESTEROLEMIA, UNSPECIFIED Status: Acute (4) Myositis Code(s): M60.9 - MYOSITIS, UNSPECIFIED Status: Acute - Plan Plan: dka - on insulin drip protocol. monitor anion gap and K. accu checks q 1hr. bmp q 4-6hrs. on iv hydration htn - continue home meds after initial hydration hypercholesterolemia - statin discontinued due to increasing ck. f/u w pcp myositis - f/u w child day care provider, holding steroid for now
[2019-08-09] MEDS: D5 1/2 NS w/20 mEq KCL 1,000 ML IV PRN ×3 (00:02→07:12)
[2019-08-09 01:00] LABS: Sodium 139 mmol/L (136-145)
[2019-08-09 01:01] LABS: Anion Gap 13 mmol/L (10-20); BUN (Urea Nitrogen) 12 mg/dL (8.4-25.7); Calc. Creatinine Clearance 146 mL/min (70-130); Calcium 8.2 mg/dL (7.8-10.44); Carbon Dioxide 21 mmol/L (22-29); Chloride 109 mmol/L (98-107); Estimated GFR-MDRD Greater than 90; Glucose 152 mg/dL (70-105); Potassium 3.8 mmol/L (3.5-5.1)
[2019-08-09 04:54] LABS: Anion Gap 11 mmol/L (10-20); BUN (Urea Nitrogen) 10 mg/dL (8.4-25.7); Calc. Creatinine Clearance 151 mL/min (70-130); Carbon Dioxide 21 mmol/L (22-29); Chloride 106 mmol/L (98-107); Estimated GFR-MDRD Greater than 90; Glucose 226 mg/dL (70-105); Potassium 3.7 mmol/L (3.5-5.1); Sodium 134 mmol/L (136-145)
[2019-08-09] MEDS: Enoxaparin Sodium 40 MG/0.4 ML SYRINGE SC SCH (07:13)
--- NOTE | 2019-08-09 13:05 | PDOC.HOSPP ---
- Subjective Encounter Date: 08/09/19 Encounter Time: 13:00 Subjective: f/u for DKA on - Objective Vital Signs & Weight: Vital Signs (12 hours) Temp Pulse Ox 08/09/19 11:10 98.1 F 08/09/19 07:25 96 08/09/19 07:10 97.7 F 08/09/19 03:38 98.6 F Weight Weight 173 lb 6.4 oz Most Recent Monitor Data Heart Rate from ECG 96 NIBP 131/88 NIBP BP-Mean 102 Respiration from ECG 23 SpO2 98 I&O: 08/08/19 08/09/19 08/10/19 06:59 06:59 06:59 Intake Total 3526 1500 Output Total 1025 575 Balance 2501 925 Result Diagrams: 08/08/19 16:56 08/09/19 03:45 Additional Labs: Accuchecks 08/09/19 08/09/19 08/09/19 12:24 11:13 10:06 POC Glucose 200 H 218 H 176 H 08/09/19 08/09/19 08/09/19 09:05 08:19 07:15 POC Glucose 156 H 128 H 136 H 08/09/19 08/09/19 08/09/19 06:06 05:15 04:01 POC Glucose 197 H 231 H 216 H 08/09/19 08/09/19 08/09/19 03:03 02:01 01:04 POC Glucose 241 H 210 H 162 H 08/09/19 08/08/19 08/08/19 00:02 23:13 21:58 POC Glucose 122 H 183 H 189 H 08/08/19 08/08/19 20:06 17:04 POC Glucose 293 H 485 H Laboratory Tests 07/19/19 08/08/19 12:04 16:56 Hemoglobin A1c 8.1 H B-Hydroxybutyrate 2.26 H EKG Reviewed by me: Yes (Tele - SR) Hospitalist ROS - Medication Medications: Active Medications Generic Name Dose Route Start Last Admin Trade Name Freq PRN Reason Stop Dose Admin Enoxaparin Sodium 40 mg 08/09/19 09:00 08/09/19 07:13 Lovenox SC Not Given 0900 AGNIESZKA Insulin Human Regular 100 101 mls @ 8.08 mls/hr 08/08/19 19:30 08/08/19 20:36 units/ Sodium Chloride IVPB 101 mls INF AGNIESZKA Administration 8 UNITS/HR Potassium Chloride/Dextrose/Sod Cl 1,000 mls @ 250 mls/hr 08/08/19 20:13 07:12 D5 1/2 Ns W/20 Meq Kcl IV 1,000 mls .Q4H PRN Administration Step 4 of DKA Protocol Protocol Potassium Chloride/Sodium Chloride 1,000 mls @ 500 mls/hr 08/08/19 20:13 22:28 Ns 0.9% W/ 20 Meq Kcl IV 1,000 mls .Q2H PRN Administration Step 2 of DKA Protocol Protocol - Exam General Appearance: NAD, awake alert Eye: PERRL, anicteric sclera ENT: normocephalic atraumatic, no oropharyngeal lesions Neck: supple, symmetric, no JVD, no thyromegaly Heart: RRR, no murmur, no gallops, no rubs, normal peripheral pulses Heart - other findings: S1, S2 Respiratory: CTAB, no wheezes, no rales, no ronchi, normal chest expansion Gastrointestinal: soft, non-tender, non-distended, normal bowel sounds, no palpable masses Extremities: no cyanosis, no clubbing, no edema Skin: normal turgor, no lesions Neurological: cranial nerve grossly intact, no new deficit Musculoskeletal: normal tone, normal strength, no muscle wasting Psychiatric: normal affect, A&O x 3 Hosp A/P (1) DKA (diabetic ketoacidoses) Code(s): E11.10 - TYPE 2 DIABETES MELLITUS WITH KETOACIDOSIS WITHOUT COMA Status: Acute Qualifiers: Diabetes mellitus type: type 2 Plan: Continue Insulin gtt per protocol, IVF's, likely exacerbated with Prednisone Rx as outpt (2) Hypertension Code(s): I10 - ESSENTIAL (PRIMARY) HYPERTENSION Status: Chronic Qualifiers: Hypertension type: essential hypertension Qualified Code(s): I10 - Essential (primary) hypertension Plan: Resume home BP regimen and monitor clinical response (3) Myositis Code(s): M60.9 - MYOSITIS, UNSPECIFIED Status: Chronic Plan: Hold Prednisone currently due to DKA, may need to resume Prednisone with home insulin regimen (4) Hypercholesteremia Code(s): E78.00 - PURE HYPERCHOLESTEROLEMIA, UNSPECIFIED Status: Chronic - Plan licensed master social worker, out of bed/ambulate, DVT proph w/SCDs Continue DKA protocol with insulin gtt ADA diet Hold Prednisone Resume home BP regimen OOB/ambulate AM lab: BMP Likely home in 24h
--- NOTE | 2019-08-09 15:17 | PQF ---
DATE: 08-09-19 ATTN: DR. BITA GRANDE Please exercise your independent, professional judgment in responding to the clarification form. Clinical indicators are provided on the bottom of this form for your review Please check appropriate box(s): [ ] Hyponatremia [ x ] Insignificant Lab Values [ ] Other diagnosis [ ] Unable to determine In addition, please specify: Present on Admission (POA): [ x ] Yes [ ] No [ ] Unable to determine For continuity of documentation, please document condition throughout progress notes and discharge summary. Thank You. CLINICAL INDICATORS - SIGNS / SYMPTOMS/ LABS are present in the medical record: SODIUM: 08-08-19: 131, 135 08-09-19: 139, 134 RISK FACTORS: ER NOTES 08-08-19: HYPERGLYCEMIA AFTER STARTING STEROIDS FOR HIGH CK, REPORTS AN INCREASE IN THIRST, BLURRED VISION AND FREQUENT URINATION; ER DX: DKA TREATMENT: ER NOTES 08-08-19: HUMULIN R IV, NOVOLIN R IV, NS IVF (This form is maintained as a part of the permanent medical record) 2014 [email or web address] All Rights Reserved [email or web address] [email or web address] [facility]
[2019-08-09] MEDS ORDERED: Insulin Glargine 10 UNITS in Pre-Filled Syringe SC SCH (20:00)
[2019-08-09] MEDS: Alfuzosin 10 MG TABDR...ER PO SCH (20:36)
[2019-08-09] MEDS ORDERED: Dextrose 50% Abboject 50 ML SYRINGE IVP PRN (21:00)
[2019-08-09] MEDS ORDERED: Dextrose 5% in Water 1,000 ML IV PRN (21:00)
[2019-08-09] MEDS ORDERED: Insulin Regular 300 UNITS/3 ML VIAL SC PRN (21:00)
[2019-08-10 04:55] LABS: Anion Gap 14 mmol/L (10-20); BUN (Urea Nitrogen) 7 mg/dL (8.4-25.7); Calc. Creatinine Clearance 137 mL/min (70-130); Calcium 8.9 mg/dL (7.8-10.44); Carbon Dioxide 24 mmol/L (22-29); Chloride 100 mmol/L (98-107); Estimated GFR-MDRD Greater than 90; Glucose 165 mg/dL (70-105); Potassium 3.9 mmol/L (3.5-5.1); Sodium 134 mmol/L (136-145)
[2019-08-10] MEDS: Enoxaparin Sodium 40 MG/0.4 ML SYRINGE SC SCH (07:15)
[2019-08-10] MEDS: Calcium Carbonate 500 MG TAB PO SCH (07:28)
[2019-08-10] MEDS: azaTHIOprine 50 MG TAB PO SCH (07:28)
[2019-08-10] MEDS ORDERED: metFORMIN 500 MG TAB PO SCH (10:00)
[2019-08-10] MEDS ORDERED: predniSONE 20 MG TAB PO SCH (10:00)
[2019-08-10] MEDS: Insulin Regular 300 UNITS/3 ML VIAL SC PRN ×2 (11:57→18:00)
--- NOTE | 2019-08-10 13:21 | PDOC.HOSPP ---
- Subjective Encounter Date: 08/10/19 Encounter Time: 08:15 Subjective: feels better, wants to go home was on high dose prednisone for suspected myositis with biopsy - Objective Vital Signs & Weight: Vital Signs (12 hours) Temp Pulse Resp BP Pulse Ox 08/10/19 10:30 98.9 F 128 H 18 142/99 H 95 08/10/19 08:00 98 08/10/19 07:17 97.6 F 08/10/19 04:00 97.8 F Weight Weight 175 lb 4.28 oz Most Recent Monitor Data Heart Rate from ECG 129 NIBP 136/88 NIBP BP-Mean 104 Respiration from ECG 15 SpO2 100 I&O: 08/09/19 08/10/19 08/11/19 06:59 06:59 06:59 Intake Total 3526 3850 Output Total 1025 4800 200 Balance 2501 -950 -200 Result Diagrams: 08/08/19 16:56 08/10/19 03:37 Additional Labs: Accuchecks 08/10/19 08/10/19 08/09/19 11:03 06:01 20:16 POC Glucose 241 H 148 H 198 H 08/09/19 08/09/19 08/09/19 19:16 18:07 17:07 POC Glucose 180 H 154 H 114 H 08/09/19 08/09/19 08/09/19 16:04 15:18 14:44 POC Glucose 131 H 202 H 232 H Hospitalist ROS - Medication Medications: Active Medications Generic Name Dose Route Start Last Admin Trade Name Freq PRN Reason Stop Dose Admin Alfuzosin HCl 10 mg 08/09/19 21:00 08/09/19 20:36 Uroxatral PO 10 mg HS [facility] Administration Azathioprine 50 mg 08/10/19 09:00 08/10/19 07:28 Imuran PO 50 mg DAILY [facility] Administration Calcium Carbonate 1,000 mg 08/10/19 09:00 08/10/19 07:28 Oscal-500 PO 1,000 mg DAILY [facility] Administration Cholecalciferol 1,000 units 08/10/19 09:00 08/10/19 07:28 Vitamin D3 PO 1,000 units DAILY [facility] Administration Enoxaparin Sodium 40 mg 08/09/19 09:00 08/10/19 07:15 Lovenox SC Not Given 0900 [facility] Insulin Human Regular 0 units 08/09/19 21:00 08/10/19 11:57 Humulin R SC 4 unit .MODERATE SLIDING SC PRN Administration MODERATE SLIDING SCALE Protocol Sodium Chloride 10 ml 08/09/19 21:00 08/10/19 07:28 Flush - Normal Saline IVF 10 ml Q12HR AGNIESZKA Administration - Exam General Appearance: awake alert Eye: PERRL, anicteric sclera ENT: no oropharyngeal lesions, moist mucosa Neck: supple, no JVD Heart: RRR, no murmur Respiratory: no wheezes, no rales Gastrointestinal: soft, non-tender, non-distended, normal bowel sounds Extremities: no cyanosis, no edema Neurological: cranial nerve grossly intact, no focal deficits Psychiatric: normal affect, A&O x 3 Hosp A/P (1) DM type 2 (diabetes mellitus, type 2) Status: Acute Qualifiers: Diabetes mellitus long term care social worker insulin use: without long term care social worker use Diabetes mellitus complication status: with hyperglycemia Qualified Code(s): E11.65 - Type 2 diabetes mellitus with hyperglycemia (2) DKA (diabetic ketoacidoses) Code(s): E11.10 - TYPE 2 DIABETES MELLITUS WITH KETOACIDOSIS WITHOUT COMA Status: Resolved Qualifiers: Diabetes mellitus type: type 2 (3) Hypertension Code(s): I10 - ESSENTIAL (PRIMARY) HYPERTENSION Status: Chronic Qualifiers: Hypertension type: essential hypertension Qualified Code(s): I10 - Essential (primary) hypertension (4) Myositis Code(s): M60.9 - MYOSITIS, UNSPECIFIED Status: Chronic Qualifiers: Myositis type: unspecified type (5) Dyslipidemia Code(s): E78.5 - HYPERLIPIDEMIA, UNSPECIFIED Status: Chronic - Plan has been diagnosed with biopsy proven myositis per patient (?rhabdomyolysis last levels were around 1000) is on high dose prednisone for above, currently on 80mg/day dka resolved will need insulin in addition to metformin and gliptins start his prednisone along with low dose lantus and oral meds dc plan in am if stable
[2019-08-10] MEDS: Alfuzosin 10 MG TABDR...ER PO SCH (20:30)
[2019-08-10] MEDS: Insulin Glargine 10 UNITS in Pre-Filled Syringe 1 EACH SC SCH (20:39)
[2019-08-11 05:53] LABS: Anion Gap 14 mmol/L (10-20); BUN (Urea Nitrogen) 14 mg/dL (8.4-25.7); Calc. Creatinine Clearance 117 mL/min (70-130); Calcium 9.2 mg/dL (7.8-10.44); Carbon Dioxide 22 mmol/L (22-29); Chloride 102 mmol/L (98-107); Estimated GFR-MDRD Greater than 90; Glucose 189 mg/dL (70-105); Potassium 3.4 mmol/L (3.5-5.1); Sodium 135 mmol/L (136-145)
[2019-08-11 06:59] VITALS: BP 111/67; TEMP 98.1
[2019-08-11] MEDS ORDERED: predniSONE 50 MG TAB PO SCH (08:00)
[2019-08-11] MEDS ORDERED: metFORMIN 500 MG TAB PO SCH (08:00)
[2019-08-11] MEDS ORDERED: Losartan 25 MG TAB PO SCH (09:00)
[2019-08-11] MEDS ORDERED: Alogliptin 25 MG TAB PO SCH (09:00)
[2019-08-11] MEDS: Calcium Carbonate 500 MG TAB PO SCH (11:23)
[2019-08-11] MEDS: azaTHIOprine 50 MG TAB PO SCH (11:23)
[2019-08-11] MEDS: Enoxaparin Sodium 40 MG/0.4 ML SYRINGE SC SCH (11:24)
[2019-08-11] MEDS: Insulin Glargine 10 UNITS in Pre-Filled Syringe 1 EACH SC SCH (11:25)
--- NOTE | 2019-08-11 18:17 | DIS ---
DATE OF ADMISSION: 08/08/2019 DATE OF DISCHARGE: 08/11/2019 DISCHARGE DISPOSITION: To home. PRIMARY DISCHARGE DIAGNOSES: Diabetic ketoacidosis, resolved; diabetes mellitus type 2, labile due to steroids; myositis/rhabdomyolysis, on prednisone and Imuran; hypertension; dyslipidemia; obesity. LABORATORY DATA: H and H of 14 and 42, platelet count 233, BUN and creatinine of 14 and 0.7, serum glucose 189 on the day of discharge, had serum glucose of 592 on arrival. Beta-hydroxybutyrate was 2.26 mmol/L. DISCHARGE MEDICATIONS: 1. Please note, his prednisone has been reduced to 50 mg from 80 mg. 2. Lantus is new medication that he will be taking at 15 units subcu twice daily. To continue, 1. Metformin 1000 mg twice daily. 2. Tradjenta 5 mg daily. 3. Losartan 50 mg daily. 4. Vitamin D3 1000 units p.o. daily. 5. Imuran 50 mg daily. 6. Alfuzosin extended release 10 mg p.o. at bedtime. ALLERGIES: NO KNOWN DRUG ALLERGIES. DISCHARGE PLAN: The patient to follow up with his neurologist, likely a tele conference tomorrow to touch base with him in view of him being on high-dose steroids and current hospitalization for DKA. He will follow up with Ms. Brandi Tesfaye, primary care physician, in 1 week. BRIEF COURSE DURING HOSPITALIZATION: The patient initially came in with complaints of blurry vision and generalized weakness. He was found to be in DKA with serum sugars more than 500. The patient has known history of diabetes mellitus type 2, on oral medication. He was diagnosed with myositis with muscle biopsy done 4 weeks back and has been on prednisone for the same. He is under supervision of a neurologist for the same. Likely his prednisone made his diabetes worse. He has been placed on Lantus 15 units subcu twice daily and his prednisone was reduced to 50 mg daily. He needs to closely follow up with his neurologist in the outpatient setting. He has also been advised to check fingerstick glucose twice daily and record to follow up with primary care physician. Mr. Cely Marsh has also been advised to reduce his insulin dose as he comes down on his prednisone. Please note, I have seen and examined the patient on the day of discharge. Job ID: [id number]
== END 2019-08-11 11:09 | disposition home or self-care (01) | DRG 638 ==
LOC: ERS 16:24 → IMCU/EMU 19:02 → T4-A 08-10 10:53
PROVIDERS: ADMIT Internal Medicine; ATTEND Family Medicine
DX: E11.10 Type 2 diabetes mellitus with ketoacidosis without coma (principal); M62.82 Rhabdomyolysis; M33.20 Polymyositis, organ involvement unspecified; T38.0X5A Adverse effect of glucocorticoids and synthetic analogues, initial encounter; I10 Essential (primary) hypertension; E78.5 Hyperlipidemia, unspecified; E66.9 Obesity, unspecified; E78.00 Pure hypercholesterolemia, unspecified; Z68.25 Body mass index [BMI] 25.0-25.9, adult; Z79.4 Long term (current) use of insulin; Z90.49 Acquired absence of other specified parts of digestive tract; Z79.899 Other long term (current) drug therapy; Z79.52 Long term (current) use of systemic steroids
CPT/HCPCS: 36415; 36416; 80048; 80053; 81003; 82010; 82330; 82803; 83690; 85025; 96361; 96374; J1815; J3480; J3490; J7500; J7512

== ENCOUNTER 2021-11-29 13:58 | Outpatient (CLI) | payer BC | END 2021-11-29 13:59 | disposition home or self-care (01) | LOC: BICMAMMO 13:58 | PROVIDERS: ATTEND Psychiatry & Neurology Neurology | DX: M81.0 Age-related osteoporosis without current pathological fracture (principal); M85.851 Other specified disorders of bone density and structure, right thigh; M85.852 Other specified disorders of bone density and structure, left thigh | CPT/HCPCS: 77080 ==

== ENCOUNTER 2022-08-15 13:09 | Inpatient (IN) | payer BC ==
[~2022-08-15 13:09] MED LIST changes: -Iopamidol 370 76% 100 ML VIAL ONE; +Iopamidol-370 76% 500 ML MDV (1 ML CHARGE) ONE
[2022-08-15 13:57] LABS: Hemoglobin 13.3 g/dL (14.0-18.0); Mean Corpuscular HGB CONC 33.6 g/dL (32.0-36.0); Mean Corpuscular Hemoglobin 30.1 pg (27.0-31.0); Mean Corpuscular Volume 89.6 fl (78.0-98.0); Mean Platelet Volume 7.3 fL (7.4-10.4); Platelet Count 220 10x3/uL (130-400); RBC Distribution Width 13.1 % (11.5-14.5); Red Blood Cell (RBC) Count 4.41 mill/uL (4.70-6.10); White Blood Cell (WBC) Count 4.7 10x3/uL (4.8-10.8)
[2022-08-15 14:04] LABS: Bacteria/HPF 3+ HPF (None Seen); Bilirubin Negative (Negative); Blood, Urine 3+ (Negative); Clarity Clear (Clear); Glucose, Urine (Dipstick) Normal (Negative); Ketone, Urine Trace mg/dL (Negative); Leukocyte 75 Leu/uL (Negative); Nitrite Negative (Negative); Protein, Urine (Dipstick) 20 mg/dL (Neg-Trace); RBC/HPF 21-50 HPF (0-3); Specific Gravity, Urine 1.016 (1.002-1.036); Squamous Epithelial 0-3 HPF (0-3); Urobilinogen Normal mg/dL (Less than 2); pH, Urine 5.5 (5.0-9.0)
[2022-08-15 14:06] LABS: PTT 23.9 sec (22.9-36.1)
[2022-08-15 14:15] LABS: ALT (SGPT) 80 U/L (8-55); AST (SGOT) 47 U/L (5-34); Albumin 4.4 g/dL (3.5-5.0); Alkaline Phosphatase 96 U/L (40-110); Anion Gap 19 mmol/L (10-20); BUN (Urea Nitrogen) 14 mg/dL (8.4-25.7); Bilirubin, Total 1.4 mg/dL (0.2-1.2); Calc. Creatinine Clearance 0 mL/min (70-130); Calcium 9.8 mg/dL (7.8-10.44); Carbon Dioxide 21 mmol/L (22-29); Chloride 102 mmol/L (98-107); Estimated GFR 87; Globulin 3.1 g/dL (2.4-3.5); Glucose 151 mg/dL (70-105); Potassium 3.7 mmol/L (3.5-5.1); Protein, Total 7.5 g/dL (6.0-8.3); Sodium 138 mmol/L (136-145)
[2022-08-15 14:17] LABS: Band 27 % (5-11); Eosinophils 2 % (0-10); Lymphocytes 19 % (21-51); MDiff Complete? YES; Metamyelocyte 1 % (0-0); Monocytes 1 % (0-10); Neutrophil 50 % (42-75); Platelet Morphology Comment Appears Adequate; Polychromasia SLIGHT = 2-3 cells (100X) (0-2/hpf); Vacuoles SLIGHT
[2022-08-15] MEDS ORDERED: Cefepime 2 GM VIAL ONE (15:04)
[2022-08-15] MEDS ORDERED: Vancomycin HCl 2.25 GM in Sodium Chloride 0.9% 500 ML IVPB SCH (15:30)
[2022-08-15] MEDS ORDERED: Ketorolac Tromethamine 30 MG/ML VIAL ONE (15:49)
[2022-08-15] MEDS ORDERED: diphenhydrAMINE 50 MG/ML VIAL ONE (17:12)
[2022-08-15] MEDS ORDERED: Sodium Chloride 0.9% 1,000 ML IV SCH (19:00)
[2022-08-15] MEDS ORDERED: Ondansetron ODT 4 MG TAB SL PRN (19:00)
[2022-08-15] MEDS ORDERED: Ondansetron PF 4 MG/2 ML Vial IVP PRN (19:00)
[2022-08-15] MEDS ORDERED: Acetaminophen 325 MG TAB PO PRN (19:00)
[2022-08-15 19:53] VITALS: BMI 31.6
[2022-08-15] MEDS ORDERED: HYDROcodone/Acetaminophen 5/325 mg Tablet PO PRN (20:35)
[2022-08-15] MEDS ORDERED: HumaLOG 300 UNITS/3 ML VIAL SC PRN ×2 (21:16)
[2022-08-15] MEDS ORDERED: Dextrose 50% Abboject 50 ML SYRINGE SLOW IVP PRN (21:16)
[2022-08-15] MEDS ORDERED: Dextrose 5% in Water 1,000 ML IV PRN (21:16)
[2022-08-15 22:28] LABS: #Eosinphils 0.1 thou/uL (0.0-0.7); #Lymphocytes 1.2 thou/uL (1.20-3.40); #Monocytes 0.8 thou/uL (0.11-0.59); #Neutrophils 13.4 thou/uL (1.40-6.50); %Basophils 0.1 % (0.0-1.0); %Eosinophils 0.8 % (0.0-10.0); %Lymphocytes 7.8 % (21.0-51.0); %Monocytes 4.9 % (0.0-10.0); %Neutrophils 86.4 % (42.0-75.0); Hemoglobin 11.3 g/dL (14.0-18.0); Mean Corpuscular HGB CONC 33.7 g/dL (32.0-36.0); Mean Corpuscular Hemoglobin 30.4 pg (27.0-31.0); Mean Corpuscular Volume 90.1 fl (78.0-98.0); Mean Platelet Volume 7.2 fL (7.4-10.4); Platelet Count 225 10x3/uL (130-400); RBC Distribution Width 13.1 % (11.5-14.5); White Blood Cell (WBC) Count 15.5 10x3/uL (4.8-10.8)
[2022-08-15 23:22] LABS: Chloride 110 mmol/L (98-107); Potassium 4.1 mmol/L (3.5-5.1); Sodium 142 mmol/L (136-145)
[2022-08-15 23:23] LABS: Glucose 219 mg/dL (70-105)
[2022-08-15 23:24] LABS: Carbon Dioxide 20 mmol/L (22-29)
[2022-08-15 23:27] LABS: BUN (Urea Nitrogen) 12 mg/dL (8.4-25.7); Calc. Creatinine Clearance 114 mL/min (70-130); Estimated GFR 92
[2022-08-15 23:43] LABS: Calcium 8.3 mg/dL (7.8-10.44)
[2022-08-16] MEDS: cefTRIAXone\\ROCEPHIN 1 GM in Sodium Chloride 0.9% 100 ML IVPB SCH ×2 (01:04→21:11)
[2022-08-16] MEDS: Sodium Chloride 0.9% 1,000 ML IV SCH ×4 (01:04→21:12)
[2022-08-16 05:00] LABS: #Eosinphils 0.3 thou/uL (0.0-0.7); #Lymphocytes 1.2 thou/uL (1.20-3.40); #Neutrophils 10.1 thou/uL (1.40-6.50); %Basophils 0.4 % (0.0-1.0); %Eosinophils 2.4 % (0.0-10.0); %Lymphocytes 9.3 % (21.0-51.0); %Monocytes 7.6 % (0.0-10.0); %Neutrophils 80.3 % (42.0-75.0); Hemoglobin 11.4 g/dL (14.0-18.0); Mean Corpuscular HGB CONC 34.6 g/dL (32.0-36.0); Mean Corpuscular Hemoglobin 31.3 pg (27.0-31.0); Mean Corpuscular Volume 90.3 fl (78.0-98.0); Mean Platelet Volume 7.2 fL (7.4-10.4); Platelet Count 227 10x3/uL (130-400); RBC Distribution Width 13.3 % (11.5-14.5); Red Blood Cell (RBC) Count 3.64 mill/uL (4.70-6.10); White Blood Cell (WBC) Count 12.5 10x3/uL (4.8-10.8)
[2022-08-16 05:02] LABS: Hemoglobin A1c 7.2 % (4.0-6.0)
[2022-08-16 05:22] LABS: Chloride 111 mmol/L (98-107); Potassium 3.8 mmol/L (3.5-5.1); Sodium 141 mmol/L (136-145)
[2022-08-16 05:23] LABS: Anion Gap 13 mmol/L (10-20); BUN (Urea Nitrogen) 12 mg/dL (8.4-25.7); Calc. Creatinine Clearance 137 mL/min (70-130); Calcium 8.2 mg/dL (7.8-10.44); Carbon Dioxide 21 mmol/L (22-29); Estimated GFR 102; Glucose 151 mg/dL (70-105)
[2022-08-16] MEDS: Famotidine/PF 20 mg/2ml Vial SLOW IVP SCH ×3 (06:22→21:11)
[2022-08-16] MEDS: Benzonatate 100 MG CAP PO PRN ×2 (08:39→16:01)
[2022-08-16] MEDS: metFORMIN 500 MG TAB PO SCH (16:32)
[2022-08-17] MEDS: Sodium Chloride 0.9% 1,000 ML IV SCH ×3 (04:31→20:58)
[2022-08-17 04:36] LABS: #Eosinphils 0.2 thou/uL (0.0-0.7); #Lymphocytes 1.1 thou/uL (1.20-3.40); #Monocytes 1.3 thou/uL (0.11-0.59); #Neutrophils 6.9 thou/uL (1.40-6.50); %Basophils 0.3 % (0.0-1.0); %Eosinophils 2.4 % (0.0-10.0); %Lymphocytes 11.4 % (21.0-51.0); %Monocytes 13.4 % (0.0-10.0); %Neutrophils 72.5 % (42.0-75.0); Hemoglobin 10.8 g/dL (14.0-18.0); Mean Corpuscular HGB CONC 34.6 g/dL (32.0-36.0); Mean Corpuscular Hemoglobin 30.9 pg (27.0-31.0); Mean Corpuscular Volume 89.3 fl (78.0-98.0); Mean Platelet Volume 7.4 fL (7.4-10.4); Platelet Count 233 10x3/uL (130-400); Red Blood Cell (RBC) Count 3.48 mill/uL (4.70-6.10); White Blood Cell (WBC) Count 9.5 10x3/uL (4.8-10.8)
[2022-08-17 04:59] LABS: Anion Gap 11 mmol/L (10-20); BUN (Urea Nitrogen) 8 mg/dL (8.4-25.7); Calc. Creatinine Clearance 146 mL/min (70-130); Calcium 8.2 mg/dL (7.8-10.44); Carbon Dioxide 22 mmol/L (22-29); Chloride 109 mmol/L (98-107); Estimated GFR 104; Glucose 163 mg/dL (70-105); Potassium 3.5 mmol/L (3.5-5.1); Sodium 138 mmol/L (136-145)
[2022-08-17] MEDS: Alogliptin 6.25 MG TAB PO SCH (08:32)
[2022-08-17] MEDS: Famotidine/PF 20 mg/2ml Vial SLOW IVP SCH ×2 (08:32→20:51)
[2022-08-17] MEDS: Cholecalciferol 1,000 UNITS (25 MCG) TAB PO SCH (08:32)
[2022-08-17] MEDS: Benzonatate 100 MG CAP PO PRN (08:32)
[2022-08-17] MEDS: Losartan 25 MG TAB PO SCH (08:32)
[2022-08-17] MEDS: metFORMIN 500 MG TAB PO SCH ×2 (08:32→17:24)
[2022-08-17] MEDS: Calcium Carbonate 500 MG TAB PO SCH (08:32)
[2022-08-17] MEDS: cefTRIAXone\\ROCEPHIN 1 GM in Sodium Chloride 0.9% 100 ML IVPB SCH (20:52)
[2022-08-18 03:57] VITALS: TEMP 98.1
[2022-08-18 04:57] LABS: #Eosinphils 0.2 thou/uL (0.0-0.7); #Lymphocytes 0.9 thou/uL (1.20-3.40); #Monocytes 1.1 thou/uL (0.11-0.59); #Neutrophils 6.6 thou/uL (1.40-6.50); %Basophils 0.4 % (0.0-1.0); %Eosinophils 2.5 % (0.0-10.0); %Monocytes 12.2 % (0.0-10.0); %Neutrophils 74.9 % (42.0-75.0); Hemoglobin 11.7 g/dL (14.0-18.0); Mean Corpuscular Hemoglobin 30.7 pg (27.0-31.0); Mean Corpuscular Volume 87.8 fl (78.0-98.0); Platelet Count 256 10x3/uL (130-400); Red Blood Cell (RBC) Count 3.82 mill/uL (4.70-6.10); White Blood Cell (WBC) Count 8.9 10x3/uL (4.8-10.8)
[2022-08-18 05:13] LABS: Anion Gap 14 mmol/L (10-20); BUN (Urea Nitrogen) 7 mg/dL (8.4-25.7); Calc. Creatinine Clearance 144 mL/min (70-130); Carbon Dioxide 21 mmol/L (22-29); Chloride 107 mmol/L (98-107); Estimated GFR 103; Glucose 134 mg/dL (70-105); Potassium 3.4 mmol/L (3.5-5.1); Sodium 139 mmol/L (136-145)
[2022-08-18] MEDS: Sodium Chloride 0.9% 1,000 ML IV SCH (08:40)
[2022-08-18] MEDS: metFORMIN 500 MG TAB PO SCH (08:40)
[2022-08-18] MEDS: Calcium Carbonate 500 MG TAB PO SCH (09:24)
[2022-08-18] MEDS: Alogliptin 6.25 MG TAB PO SCH (09:24)
[2022-08-18] MEDS: Cholecalciferol 1,000 UNITS (25 MCG) TAB PO SCH (09:25)
[2022-08-18] MEDS: Famotidine/PF 20 mg/2ml Vial SLOW IVP SCH (09:25)
[2022-08-18] MEDS: Losartan 25 MG TAB PO SCH (09:25)
[2022-08-18 09:30] VITALS: BP 145/82
== END 2022-08-18 11:35 | disposition home or self-care (01) | DRG 872 ==
LOC: ERS 13:09 → 2SW 18:47
PROVIDERS: ADMIT Hospitalist; ATTEND Internal Medicine
DX: A41.51 Sepsis due to Escherichia coli [E. coli] (principal); N39.0 Urinary tract infection, site not specified; I10 Essential (primary) hypertension; E11.9 Type 2 diabetes mellitus without complications; E78.00 Pure hypercholesterolemia, unspecified; Z79.84 Long term (current) use of oral hypoglycemic drugs; Z79.51 Long term (current) use of inhaled steroids; Z79.899 Other long term (current) drug therapy
CPT/HCPCS: 36415; 36416; 71045; 74177; 76705; 80048; 80053; 81003; 81015; 83036; 83605; 85025; 85610; 85730; 87040; 87077; 87086; 87186; 93005; 94760; 96361; 96365; 96366; 96367; 96375; J0692; J0696; J1200; J1650; J1815; J1885; J3370; J3490; J7030; J7050; Q9967; S0028

== ENCOUNTER 2022-09-26 18:00 | Outpatient (CLI) | payer BC | END 2022-09-26 18:01 | disposition home or self-care (01) | LOC: SLEEPLAB 18:00 | PROVIDERS: ATTEND Physician Assistant | DX: G47.33 Obstructive sleep apnea (adult) (pediatric) (principal); E11.9 Type 2 diabetes mellitus without complications; I10 Essential (primary) hypertension; E66.9 Obesity, unspecified; R06.83 Snoring | CPT/HCPCS: 95800 ==